=== PATIENT | male | born 1980 | race Caucasian/White ===

== ENCOUNTER 2019-11-14 21:54 | Emergency (ER) | payer MEDICAID ==
[~2019-11-14] VITALS: Ht 172.7 cm; Wt 49.9 kg
[2019-11-14 22:00] VITALS: BP_SYST 160
--- NOTE | 2019-11-14 22:00 | NUR ---
Patient triaged and placed in waiting room. VSS and patient appears in no acute distress at this time. Accompanied by GIRLFRIEND, awaiting available bed, and MD notified of need for MSE.
--- NOTE | 2019-11-14 23:00 | NUR ---
called pt name in the WR.no answer.
--- NOTE | 2019-11-14 23:05 | NUR ---
called pt name in the WR.no answer.
--- NOTE | 2019-11-14 23:10 | NUR ---
called pt name in the WR.no answer.
== END 2019-11-14 23:10 | disposition left against medical advice (07) ==
LOC: SED 21:54
DX: R04.0 Epistaxis (principal); Z53.21 Procedure and treatment not carried out due to patient leaving prior to being seen by health care provider

== ENCOUNTER 2023-06-27 14:29 | Emergency (ER) | payer MEDICAID ==
[~2023-06-27] VITALS: Ht 172.7 cm; Wt 83.9 kg
[2023-06-27 14:56] VITALS: BP_SYST 130; PULSE 85; RESP 19; TEMP 97.7; O2SAT 98
[2023-06-27 15:45] LABS: BILIRUBIN,URINE NEGATIVE (NEGATIVE); BLOOD, URINE 2+ (NEGATIVE); CLARITY/URINE Cloudy (CLEAR); COLOR,URINE YELLOW (YELLOW); GLUCOSE,URINE NEGATIVE (NEGATIVE); KETONES,URINE NEGATIVE (NEGATIVE); LEUKOCYTE ESTERASE ,URINE 1+ (NEGATIVE); NITRITE, URINE NEGATIVE (NEGATIVE); PROTEIN URINE 2+ (NEGATIVE)
[2023-06-27 15:54] LABS: BASOPHILS % (AUTO) 0.5 % (0.0-2.0); EOSINOPHILS # (AUTO) 0.2 K/uL (0.0-0.4); EOSINOPHILS % (AUTO) 2.7 % (0.0-4.0); HEMATOCRIT 42.3 % (36-54); HEMOGLOBIN 14.3 g/dL (14.0-18.0); LYMPHOCYTES # (AUTO) 2.8 K/uL (1.0-5.5); LYMPHOCYTES % (AUTO) 34.3 % (20.5-51.5); MEAN CORPUSCULAR HEMOGLOBIN 31 pg (27-31); MEAN CORPUSCULAR HGB CONC 34 % (32-36); MEAN CORPUSCULAR VOLUME 93 fL (79.0-98.0); MONOCYTES # (AUTO) 0.5 K/uL (0.0-1.0); NEUTROPHILS # (AUTO) 4.6 K/uL (1.8-7.7); NEUTROPHILS % (AUTO) 56.5 % (40.0-70.0); PLATELET COUNT (AUTO) 293 K/uL (130-430); RED BLOOD CELL COUNT(AUTO) 4.56 MIL/uL (4.2-6.2); RED CELL DISTRIBUTION WIDTH 12.8 % (9.0-15.0); WHITE BLOOD COUNT (AUTO) 8.1 K/uL (4.8-10.8)
[2023-06-27 16:05] LABS: INR 1.1 (0.80-1.20); PROTHROMBIN TIME 11.4 SECS (9.5-12.5)
[2023-06-27 16:17] LABS: CALCIUM 8.8 mg/dL (8.4-11.0); CREATININE 0.78 mg/dL (0.55-1.30)
[2023-06-27 16:24] LABS: ALBUMIN 3.6 g/dL (3.4-4.8); TOTAL BILIRUBIN 0.6 mg/dL (0.0-1.0); TOTAL PROTEIN, SERUM 8.5 g/dL (6.4-8.3)
[2023-06-27 16:50] LABS: BACTERIA,URINE MANY /HPF (None Seen); MUCUS,URINE None Seen /LPF (None Seen); WBC,URINE 20-50 /HPF (0-3)
[2023-06-27 16:52] VITALS: BP_SYST 130; PULSE 85; RESP 19; TEMP 97.7; O2SAT 98
== END 2023-06-27 16:54 | disposition home or self-care (01) ==
LOC: SED 14:29
DX: R31.9 Hematuria, unspecified (principal); Z79.899 Other long term (current) drug therapy
CPT/HCPCS: 36415; 76376; 80053; 81000; 82150; 83605; 83690; 85025; 85610-TC; 85730-TC; 87086; 99284

== ENCOUNTER 2023-09-04 14:04 | Emergency (ER) | payer MEDICAID ==
[~2023-09-04] VITALS: Ht 167.6 cm; Wt 72.6 kg
[2023-09-04 14:17] VITALS: BP_SYST 120; PULSE 89; RESP 18; TEMP 98.1; O2SAT 99
[2023-09-04] MEDS ORDERED: METH-776 PO (14:25)
[2023-09-04] MEDS ORDERED: NABU-140 PO (14:25)
== END 2023-09-04 15:36 | disposition home or self-care (01) ==
LOC: SED 14:04
DX: S00.36XA Insect bite (nonvenomous) of nose, initial encounter (principal); Z79.899 Other long term (current) drug therapy; W57.XXXA Bitten or stung by nonvenomous insect and other nonvenomous arthropods, initial encounter; Y93.89 Activity, other specified; Y92.89 Other specified places as the place of occurrence of the external cause; Y99.8 Other external cause status
CPT/HCPCS: 99283

== ENCOUNTER 2024-01-22 12:50 | Emergency (ER) | payer MEDICAID ==
[~2024-01-22] VITALS: Ht 162.6 cm; Wt 83.9 kg
[~2024-01-22 12:50] MED LIST: METH-776 PO; NABU-140 PO
[2024-01-22 12:59] VITALS: BP_SYST 148; PULSE 67; RESP 22; TEMP 98.3; O2SAT 97
[2024-01-22] MEDS: LIDOCAINE 1% 10 MG/ML, 20 ML MDV INJ ONE (13:12)
[2024-01-22 13:37] VITALS: BP_SYST 146; PULSE 64; RESP 18; TEMP 98.3; O2SAT 96
== END 2024-01-22 13:38 | disposition home or self-care (01) ==
LOC: SED 12:50
DX: S61.213A Laceration without foreign body of left middle finger without damage to nail, initial encounter (principal); W25.XXXA Contact with sharp glass, initial encounter; Y93.89 Activity, other specified; Y92.89 Other specified places as the place of occurrence of the external cause; Y99.8 Other external cause status
CPT/HCPCS: 99282